=== PATIENT | female | born 1995 | race Caucasian/White ===

== ENCOUNTER 2018-10-08 17:17 | Observation (INO) ==
--- NOTE | 2018-10-08 22:28 | History and Physical Report ---
DATE OF ADMISSION: 10/08/2018 HISTORY OF PRESENT ILLNESS: The patient is a 23-year-old G1, P0, due date 11/28/2018, making her 32 weeks and 5 days. The patient has received care at [facility]. Her last appointment in was on generous 10/05/2018 when she was seen with diagnosis of mild preeclampsia. Her workup included a review of her preeclamptic labs, which was a uric acid, protein, and complete chemistry. The patient had seen maternal medicine today and upon evaluation by maternal medicine, the patient was asked to come to the [facility] to have blood pressures monitored for overnight and labs repeated. If blood pressure and labs are abnormal, the patient is to be transferred back to [place]. If they are normal, then patient can be monitored as an outpatient with mild preeclampsia. Also she will be followed with labs and NST as well as growth scans. The patient presented to [facility] with no shortness of breath, no chills, no fever. Blood pressure upon admission has been stable. The heart tracing has been category I. COURSE: complicated by preeclampsia. PAST MEDICAL HISTORY: 1. The patient has a history of pyelonephritis. 2. White coat syndrome. PAST SURGICAL HISTORY: The patient had dental surgery. FAMILY HISTORY: Noncontributory. SOCIAL HISTORY: The patient denies tobacco, drug, or alcohol use. ALLERGIES: No known drug allergies. PHYSICAL EXAMINATION: GENERAL: Well-developed, well-nourished white female in no acute distress. VITAL SIGNS: Presently, blood pressure 135/87, pulse 86, respiration 18, temperature 36.4. HEART: S1, S2, regular rhythm and rate. LUNGS: Clear to auscultation bilaterally. ABDOMEN: Gravid. heart tracing is category I. EXTREMITIES: No cyanosis, clubbing, edema. ASSESSMENT AND PLAN: A 23-year-old G1, P0 at 32 and 5 weeks. Diagnosis is mild preeclampsia. The patient has been observed overnight with blood pressure series and will have labs in the morning. If they are unremarkable as stated above, she will continue with as an outpatient for mild preeclampsia. She is already steroid benefited however, if the blood pressures are abnormal or labs are abnormal, she will be transferred to [facility] in [place].
[2018-10-09] MEDS ORDERED: ACETAMINOPHEN 325 MG TAB PO PRN (00:12)
[2018-10-09] MEDS ORDERED: ACETAMINOPHEN 325 MG TAB ONE (00:30)
[2018-10-09 06:08] LABS: Basophils # (auto) 0.02 K/uL (0-0.2); Basophils % (auto) 0.2 %; Eosinophils # (auto) 0.03 K/uL (0-0.5); Eosinophils % (auto) 0.2 %; Hematocrit (blood only) 37.2 % (37-47); Hemoglobin 12.6 g/dL (12.0-16.0); Immature Granulocytes # (auto) 0.25 K/uL (0.00-0.02); Immature Granulocytes % (auto) 2.1 %; Lymphocytes # (auto) 1.88 K/uL (1.2-3.4); Lymphocytes % (auto) 15.6 %; Mean Corpuscular Hgb Conc 33.9 g/dL (32-36); Mean Corpuscular Volume 94.9 fL (80-100); Mean Platelet Volume 10.1 fL (7.4-10.4); Monocytes # (auto) 1.04 K/uL (0.11-0.59); Monocytes % (auto) 8.6 %; Neutrophils # (auto) 8.84 K/uL (1.4-6.5); Neutrophils % (auto) 73.3 %; Platelet Count 289 K/uL (130-400); RDW Coefficient of Variation 13.6 % (11.5-14.5); RDW Standard Deviation 46.8 fL (36.4-46.3); Red Blood Count 3.92 M/uL (4.2-5.4); White Blood Count 12.06 K/uL (4.8-10.8)
[2018-10-09 06:36] LABS: Albumin Level 3.1 gm/dl (3.4-5.0); BUN Creatinine Ratio 15.9 (10-20); Creatinine Clr Calc Pharmacy 84.6 ml/min; Est GFR (African American) 95.9; Est GFR (Non-African American) 82.8; Potassium 3.7 mmol/L (3.5-5.1)
[2018-10-09 06:39] LABS: Albumin Globulin Ratio 0.8 (0.9-2); Bilirubin,Total 0.3 mg/dl (0.2-1); Globulin 3.9 gm/dl (2.5-4.0)
--- NOTE | 2018-10-09 08:35 | Obstetrical Progress Note ---
Date of Service October 09, 2018 Subjective Patient is reevaluated She was admitted last night by Dr. Torres for BP's and repeat labs She feels well no complaints other than being nervous when she is in the hospital. No RUDD/ Change in vision/ N&V/ RUQ or epigastric pain BP's stable, 110-120/ 60-70's while resting and sleeping, low 140/90's when she is up nervous and looking at the monitor screen Discussed management of anxiety but she declined, she states she does not have anxiety normally, just happens here in the hospital or in doctor's office 10/09/18 10/09/18 10/09/18 Range/Units 05:35 05:35 05:35 WBC 12.06 H (4.8-10.8) K/uL RBC 3.92 L (4.2-5.4) M/uL Hgb 12.6 (12.0-16.0) g/dL Hct 37.2 (37-47) % MCV 94.9 (80-100) fL MCH 32.1 (25-34) pg MCHC 33.9 (32-36) g/dL RDW Std Deviation 46.8 H (36.4-46.3) fL RDW Coeff of Connie 13.6 (11.5-14.5) % Plt Count 289 (130-400) K/uL MPV 10.1 (7.4-10.4) fL Immature Gran % (Auto) 2.1 % Neut % (Auto) 73.3 % Lymph % (Auto) 15.6 % Kinney % (Auto) 8.6 % Eos % (Auto) 0.2 % Baso % (Auto) 0.2 % Immature Gran # (Auto) 0.25 H (0.00-0.02) K/uL Neut # (Auto) 8.84 H (1.4-6.5) K/uL Lymph # (Auto) 1.88 (1.2-3.4) K/uL Kinney # (Auto) 1.04 H (0.11-0.59) K/uL Eos # (Auto) 0.03 (0-0.5) K/uL Baso # (Auto) 0.02 (0-0.2) K/uL Sodium 135 L (136-145) mmol/L Potassium 3.7 (3.5-5.1) mmol/L Chloride 106 (98-107) mmol/L Carbon Dioxide 25 (21-32) mmol/L Anion Gap 4.0 (3-11) BUN 15 (7-18) mg/dl Creatinine 0.96 (0.6-1.2) mg/dl Est Cr Clr Drug Dosing 84.6 ml/min Est GFR ( Amer) 95.9 Est GFR (Non-Af Amer) 82.8 BUN/Creatinine Ratio 15.9 (10-20) Glucose 86 (70-99) mg/dl Calcium 9.0 (8.5-10.1) mg/dl Total Bilirubin 0.3 (0.2-1) mg/dl AST 11 L (15-37) U/L ALT 15 (12-78) U/L Alkaline Phosphatase 80 (45-117) U/L Lactate Dehydrogenase Pending Total Protein 7.0 (6.4-8.2) gm/dl Albumin 3.1 L (3.4-5.0) gm/dl Globulin 3.9 (2.5-4.0) gm/dl Albumin/Globulin Ratio 0.8 L (0.9-2) Labd WNL, LDH was not done due to machine broke Creatinine stable, had been 0.9 since 10/06 and was 0.9 [place] [facility] [place] Discussed labs and BP's She likes to go home and rest Plan: Off work, modified bed rest Daily BP's f/u in office on Friday/ for NST, BP Repeat labs All questions were answered Physical Exam 2 Vital Signs (Past 24 Hours): Last Vital Signs Temp 36.9 C 10/09/18 04:40 Pulse 127 H 10/09/18 08:02 Resp 18 10/09/18 06:16 BP 131/93 10/09/18 08:02
--- NOTE | 2018-10-13 00:29 | Discharge Summary ---
DETAILS OF ADMISSION: The patient is a 23-year-old G1, P0 at 32 weeks and 5 days. She was admitted for observation by Dr. Torres on 10/08/2018. She has been having high blood pressures with proteinuria for the last week and she had preeclamptic labs which were normal. She was referred to maternal medicine for evaluation. She saw them in their office on 10/08 afternoon and they recommended to keep her overnight for blood pressure control and transfer to them if there is any severe range of blood pressures or severe features of preeclampsia. She was admitted overnight for blood pressure measurements and labs and her labs were stable except borderline increased creatinine of 0.9, which was stable since the week before. Her liver enzymes, platelets were normal, and her blood pressures were checked multiple times from night to the morning and they were within normal limits when she is at rest and not nervous or sleeping. The highest numbers were in 140s over 90s when she is up and nervous. She has a history of white coat syndrome and has reported high blood pressures in the office in the past even before . I saw her in the morning of 10/09/2018. She was feeling well. She denied any severe symptoms. She denied chest pain, shortness of breath, headaches, change in her vision, nausea, vomiting, right upper quadrant, or epigastric pain. She reported good movements. She denies contraction, leakage of fluid, or vaginal bleeding. Her labs were repeated in the morning. Her creatinine was stable at 0.9 and other labs were normal. She wanted to be discharged. She was discharged on 10/09/2018 with modified bed rest at home, to be off from work, take blood pressures at home, and twice a week office visits for blood pressures and NSTs and repeat labs every week per [facility] recommendations. All questions were answered. Instructions were given when to call and appointments were made for the office. TESHA
== END 2018-10-09 09:25 | disposition home or self-care (01) ==
LOC: OPB 17:17 → 4S1 17:18 → INTOOBSV 19:53

== ENCOUNTER 2018-11-06 07:29 | Inpatient (IN) ==
[2018-11-06] MEDS ORDERED: miSOPROStol 50 MCG TAB PO ONE (09:41)
[2018-11-06] MEDS ORDERED: LACTATED RINGER'S 1,000 ML IV PRN (09:41)
[2018-11-06] MEDS ORDERED: OXYTOCIN 30 UNITS/500 ML BAG IV PRN (09:41)
[2018-11-06 10:10] LABS: Hematocrit (blood only) 36.1 % (37-47); Hemoglobin 12.2 g/dL (12.0-16.0); Mean Platelet Volume 9.7 fL (7.4-10.4); Platelet Count 262 K/uL (130-400); RDW Coefficient of Variation 13.9 % (11.5-14.5); RDW Standard Deviation 47.6 fL (36.4-46.3); Red Blood Count 3.84 M/uL (4.2-5.4); White Blood Count 9.33 K/uL (4.8-10.8)
[2018-11-06 10:12] LABS: Mean Corpuscular Hgb Conc 33.8 g/dL (32-36)
[2018-11-06 10:22] LABS: Albumin Level 2.4 gm/dl (3.4-5.0); BUN Creatinine Ratio 17.7 (10-20); Calcium 8.9 mg/dl (8.5-10.1); Creatinine Clr Calc Pharmacy 89.9 ml/min; Est GFR (African American) 92.4; Est GFR (Non-African American) 79.8; Potassium 3.8 mmol/L (3.5-5.1)
[2018-11-06 10:25] LABS: Albumin Globulin Ratio 0.6 (0.9-2); Bilirubin,Total 0.2 mg/dl (0.2-1); Globulin 3.8 gm/dl (2.5-4.0); Total Protein 6.2 gm/dl (6.4-8.2)
--- NOTE | 2018-11-06 10:34 | Labor Progress Brief Note ---
Date of Service November 06, 2018 Met pt and spouse Induction for mild preecalmpsia Bedside sono: VT FHR; CAT1 Ctx; Minimal VE: ft/soft/post discussed and reviewed plan with pt and spouse plan is agreed upon Cytotec#1 given Physical Exam 2 Vital Signs (Past 24 Hours): Last Vital Signs Temp 36.2 C L 11/06/18 07:49 Pulse 94 H 11/06/18 09:21 Resp 18 11/06/18 07:49 BP 140/83 11/06/18 09:21
--- NOTE | 2018-11-06 11:14 | History and Physical Report ---
DATE OF ADMISSION: 11/06/2018 HISTORY OF PRESENT ILLNESS: This is a 23-year-old G1, P0, due date 11/28/2018 making her 36 weeks and 6 days today, presented to Labor and Delivery for induction for mild preeclampsia. The patient has had preeclampsia, which was diagnosed in the last 2 weeks of her . She has been seen by Maternal Medicine and followed with conservative management, which included betamethasone, testing. was recommended by Maternal Medicine to have the patient induced at 37 weeks. Today, however, is Friday and the question was whether to have her come in and start induction today in hopes that she would be delivered at 37 weeks versus having her come over the weekend. The patient was scheduled by library serials assistant for induction today. She is therefore being induced at 36 and 6, one day short of the 37-week gestation. COURSE: Has been unremarkable. LABS: Blood type O positive, antibody negative, rubella immune, GBS negative. PAST MEDICAL HISTORY: History of pyelonephritis. PAST SURGICAL HISTORY: Dental surgery. SOCIAL HISTORY: The patient denies tobacco, drug or alcohol use. FAMILY HISTORY: Noncontributory. ALLERGIES: No known drug allergies. MEDICATIONS: The patient was on amoxicillin and vitamins. PHYSICAL EXAMINATION: GENERAL: Well-developed, well-nourished white female, in no acute distress. HEART: S1, S2, regular rhythm and rate. LUNGS: Clear to auscultation bilaterally. ABDOMEN: Gravid. PELVIC: The patient is fingertip, soft, posterior. Estimated weight by Jonatan's is about 6-7 pounds. ASSESSMENT AND PLAN: A 23-year-old G1, P0 at 36 and 6 weeks. The patient has mild preeclampsia. She started penicillin. She has been seen by Maternal Medicine. Recommendation of Maternal Medicine to induce patient. The patient is admitted here today and we will start induction process. Of note, she has had a series of 3+ proteins in her urine.
[2018-11-06] MEDS ORDERED: miSOPROStol 50 MCG TAB PO SCH (15:00)
[2018-11-06] MEDS ORDERED: DINOPROSTONE 10 MG INSERT PV ONE (19:31)
--- NOTE | 2018-11-06 20:24 | Labor Progress Brief Note ---
Date of Service November 06, 2018 Pt doing well induction for mild preeclampsia FHr CAT1 cxt 2-5mins VE; ft/post Cervidil placed in vagina Physical Exam 2 Vital Signs (Past 24 Hours): Last Vital Signs Temp 36.7 C 11/06/18 18:45 Pulse 100 H 11/06/18 20:20 Resp 18 11/06/18 18:45 BP 130/79 11/06/18 20:20
[2018-11-07] MEDS ORDERED: miSOPROStol 50 MCG TAB PO ONE (10:00)
[2018-11-07] MEDS ORDERED: miSOPROStol 50 MCG TAB PO STA ×2 (14:09→23:38)
[2018-11-07] MEDS ORDERED: miSOPROStol 50 MCG TAB PO SCH (19:00)
[2018-11-08] MEDS ORDERED: miSOPROStol 50 MCG TAB PO STA ×2 (03:26→08:05)
[2018-11-08] MEDS ORDERED: miSOPROStol 50 MCG TAB ONE (03:36)
[2018-11-08] MEDS ORDERED: OXYTOCIN 30 UNITS/500 ML BAG IV PRN ×2 (12:59→21:47)
[2018-11-08] MEDS ORDERED: LACTATED RINGER'S 1,000 ML IV PRN ×2 (12:59→17:08)
[2018-11-08] MEDS: LACTATED RINGER'S 1,000 ML IV SCH ×2 (13:15→17:05)
[2018-11-08] MEDS ORDERED: BUTORPHANOL TARTRATE 1 MG/ML VIAL IV STA (15:22)
[2018-11-08 16:07] LABS: Hematocrit (blood only) 38.8 % (37-47); Hemoglobin 13.3 g/dL (12.0-16.0); Mean Corpuscular Hgb Conc 34.3 g/dL (32-36); Mean Corpuscular Volume 94.6 fL (80-100); Mean Platelet Volume 9.6 fL (7.4-10.4); Platelet Count 303 K/uL (130-400); RDW Standard Deviation 47.7 fL (36.4-46.3); White Blood Count 13.94 K/uL (4.8-10.8)
[2018-11-08 16:23] LABS: Albumin Level 2.6 gm/dl (3.4-5.0); BUN Creatinine Ratio 14.6 (10-20); Calcium 8.7 mg/dl (8.5-10.1); Creatinine Clr Calc Pharmacy 69.5 ml/min; Est GFR (African American) 67.8; Est GFR (Non-African American) 58.5; Potassium 3.7 mmol/L (3.5-5.1)
[2018-11-08 16:25] LABS: Albumin Globulin Ratio 0.6 (0.9-2); Bilirubin,Total 0.3 mg/dl (0.2-1); Globulin 4.1 gm/dl (2.5-4.0); Total Protein 6.7 gm/dl (6.4-8.2)
[2018-11-08] MEDS ORDERED: fentaNYL citrate 100 MCG/2 ML VIAL ONE (16:36)
[2018-11-08] MEDS ORDERED: BUPIVACAINE 0.25% 30 ML VIAL ONE (16:36)
[2018-11-08] MEDS ORDERED: ePHEDrine sulfate 50 MG/ML AMP ONE (16:36)
[2018-11-08] MEDS ORDERED: fentaNYL 2MCG/ML ROPIV 1.25MG/ML 100 ML BAG EPI ONE (16:37)
--- NOTE | 2018-11-08 16:41 | Anesthesiology Consultation ---
Date of Service November 08, 2018 Assessment & Plan Chart Review Chart Review: Acceptable Risk for Labor Epidural and Patient seen in Pre Admission Testing Consults Requested none ASA ASA2 Proposed Anesthesia Anesthesia Type: Labor Epidural NPO Date Last Intake of Fluids: 11/08/18 Time Last Intake of Fluids: 16:30 Date Last Intake of Solids: 11/08/18 Time Last Intake of Solids: 12:00 History Height/Weight Height: 1.68 m Weight: 73.482 kg Allergies Allergy/AdvReac Type Severity Reaction Status Date / Time No Known Allergies Allergy Verified 11/06/18 08:03 Medications Home Medications Medication Instructions Recorded Confirmed Last Taken vit-iron fum-folic ac 1 tab PO DAILY 10/06/18 11/06/18 1 Day Ago [ Vitamin] ~11/05/18 Active Medications Generic Name Dose Route Start Last Admin Trade Name Freq PRN Reason Stop Dose Admin Oxytocin 30 units in 500 mls @ 8 mls/hr 11/08/18 12:59 11/08/18 14:55 Pitocin IV 11/10/18 12:58 0.48 units/hr .Q24H PRN 8 mls/hr Labor Induction/Augmentation Titration Protocol 0.48 UNITS/HR Past Medical History Medical History No significant past surgical history History of pyelonephritis Pre-eclampsia White coat syndrome with diagnosis of hypertension Past Family History Family History Other No pertinent family history Past Surgical History Surgical History H/O wisdom tooth extraction Past Anesthesia History No Hx of Anesthesia Complications and No Family Hx of Anesthesia Complications History of PONV No Motion Sickness Screening History of Motion Sickness: No Social History Smoking Status: Never smoker Do You Dip or Chew Tobacco: No Hx Alcohol Use: No Hx Substance Use: No Exercise / Class Metabolic Activity II 4-5 Yardwork/Stairs/Walk up hill Physical Exam Vital Signs Last Vital Signs Temp 36.9 C 11/08/18 15:53 Pulse 93 H 11/08/18 15:53 Resp 20 11/08/18 15:53 BP 141/79 H 11/08/18 15:53 ENMT Mouth: no TMJ abnormality and no TMJ clicking Thyromental Distance: < 3.5 Finger Breadths Mallampati Class: II Neck normal visual inspection; neck extension not limited Respiratory Auscultation: lungs clear to auscultation bilaterally Cardiovascular Rate/Rhythm: regular rate and regular rhythm Psychiatric Orientation: alert and oriented x 3 Testing Laboratory Results 11/08/18 15:57 11/08/18 15:57
[2018-11-08] MEDS ORDERED: ePHEDrine sulfate 50 MG/ML AMP IV PRN (17:08)
[2018-11-08] MEDS ORDERED: NALOXONE HCL 1 MG in SODIUM CHLORIDE 0.9% 1000ML 1,000 ML IV PRN (17:08)
[2018-11-08] MEDS ORDERED: fentaNYL 2MCG/ML ROPIV 1.25MG/ML 100 ML BAG EPI PRN (17:08)
[2018-11-08] MEDS ORDERED: PROMETHAZINE HCL 12.5 MG in SODIUM CHLORIDE 0.9% 50 ML IV PRN (17:08)
[2018-11-08] MEDS ORDERED: NALOXONE HCL 0.4 MG/1 ML VIAL/CARP IV PRN (17:08)
[2018-11-08] MEDS ORDERED: NALBUPHINE HCL INJ 10 MG/ML AMP IV PRN (17:08)
[2018-11-08] MEDS ORDERED: ONDANSETRON INJ 2 MG/ML 2 ML VIAL IV PRN (17:08)
[2018-11-08] MEDS ORDERED: DiphenhydrAMINE HCL 50 MG/ML VIAL IV PRN (17:08)
[2018-11-08] MEDS ORDERED: HYDROCORTISONE ACETATE 25 MG SUPP PR PRN (21:47)
[2018-11-08] MEDS ORDERED: BENZOCAINE 20% AER SPR 82.5 GM CAN EXT PRN (21:47)
[2018-11-08] MEDS ORDERED: ACETAMINOPHEN 325 MG TAB PO PRN (21:47)
[2018-11-08] MEDS ORDERED: SUPERCREAM 0.870% 15 GM JAR EXT PRN (21:47)
[2018-11-08] MEDS ORDERED: BISACODYL 10 MG SUPP PR PRN (21:47)
[2018-11-08] MEDS ORDERED: DIPHTHERIA/TETANUS/PERTUSSIS 0.5 ML SYR/VIAL IM ONE (21:47)
[2018-11-08] MEDS ORDERED: OXYCODONE/ACETAMINOPHEN 5mg/325mg TAB PO PRN (21:47)
[2018-11-08] MEDS: ACETAMINOPHEN W/CODEINE #3 1 TAB PO PRN (22:08)
--- NOTE | 2018-11-09 01:28 | Operative Report ---
DATE OF OPERATION: 11/08/2018 DELIVERY NOTE Mrs. Crandall was followed in the [facility] for care and delivery. She became toxemic. She had high blood pressure, she had proteinuria, and she was brought in for induction at approximately 36 weeks gestation. On admission, the cervix was unfavorable. She was given two 50 mcg Cytotec tablets and a Cervidil tape. The following day, we examined her cervix, her cervix was still long, closed, firm, posterior. I then started her on multiple doses of Cytotec 50 mcg every 4 hours. This was done all through Friday and through early Friday morning. She received her last dose of p.o. Cytotec about 8:00 a.m. Friday morning, at which time cervix was 1.5 cm posterior and I was able to strip the membranes. Then, in the afternoon, we went to IV Pitocin and she began to get regular contractions. Her membranes ruptured spontaneously. She had several doses of Stadol for pain control. She went to full dilatation and delivered a live male via direct occiput anterior position over an intact perineum. Infant was suctioned through the mouth and the nose. Cord was clamped, cut by the father. Cord blood was taken with IV Pitocin running, the placenta was removed intact. Inspection of the perineum revealed bilateral sulcus laceration, worse on the right than the left, and it tore through the labia minora up by the clitoral area. We approximated the right side by infiltrating the labia minora with local with epinephrine and using interrupted Vicryl sutures and mattress Vicryl sutures to reapproximate the labia minora anatomically. We then followed the extent of the sulcus laceration on the left side, got above it with a 2-0 heavy Vicryl and used continuous 2-0 Vicryl to approximate out and to beyond the hymenal ring and we used several additional mattress sutures of Vicryl to approximate the anterior surface of the labia. Same process was repeated on the patient's left side. We identified the top of the sulcus, used a running 2-0 Vicryl, injected the labia minora with local with epinephrine. Did interrupted deep sutures to get an anatomic approximation along with mattress sutures of 2-0 Vicryl both inside and outside of the labia. Following this, vag exam including rectovaginal examination revealed no hematoma formation or sponges in the vagina. Estimated blood loss was 200 mL. My own estimation of 1- and 5-minute Apgars were 8 and 9 respectively. I attest to the content of the Intraoperative Record and any orders documented therein. Any exception s are noted below.
[2018-11-09] MEDS: ACETAMINOPHEN W/CODEINE #3 1 TAB PO PRN ×3 (03:06→19:13)
[2018-11-09] MEDS ORDERED: LIDOCAINE 2% JELLY 5 ML TUBE EXT PRN (03:14)
--- NOTE | 2018-11-09 03:21 | Anesthesia Procedure Note ---
Date of Service November 09, 2018 Anesthesia Post Epidural Note Vital Signs Vital Signs: Temp Pulse Resp BP BP Pulse Ox 11/08/18 23:40 36.8 C 18 133/79 100 11/08/18 23:17 120 H 133/79 11/08/18 22:33 127 H 140/86 11/08/18 22:18 139 H 137/82 11/08/18 22:03 137 H 129/75 11/08/18 21:48 151 H 130/72 11/08/18 21:33 171 H 146/82 H 11/08/18 21:18 164 H 142/78 H 11/08/18 21:08 144 H 96 11/08/18 21:05 175 H 89 L 11/08/18 21:03 182 H 149/83 H 98 11/08/18 20:58 153 H 99 11/08/18 20:53 168 H 99 11/08/18 20:51 174 H 92 11/08/18 20:50 18 11/08/18 20:48 164 H 137/75 97 11/08/18 20:43 160 H 98 11/08/18 20:38 154 H 97 11/08/18 20:35 18 11/08/18 20:33 143 H 138/71 98 11/08/18 20:28 147 H 98 11/08/18 20:23 172 H 97 11/08/18 20:19 141 H 88 L 11/08/18 20:18 143 H 121/58 L 99 11/08/18 20:13 135 H 99 11/08/18 20:08 147 H 98 11/08/18 20:03 149 H 133/73 99 11/08/18 19:58 129 H 100 11/08/18 19:53 37.4 C 113 H 18 100 11/08/18 19:48 113 H 135/86 100 11/08/18 19:43 119 H 100 11/08/18 19:38 120 H 100 11/08/18 19:34 112 H 142/90 H 11/08/18 19:33 110 H 100 11/08/18 19:28 117 H 100 11/08/18 19:23 117 H 100 11/08/18 19:18 124 H 142/82 H 99 11/08/18 19:13 131 H 100 11/08/18 19:08 135 H 99 11/08/18 19:03 148 H 149/88 H 100 11/08/18 19:00 38.3 C H 20 11/08/18 18:58 137 H 100 11/08/18 18:53 139 H 100 11/08/18 18:48 131 H 140/86 100 11/08/18 18:43 135 H 100 11/08/18 18:38 124 H 100 11/08/18 18:33 122 H 138/89 100 11/08/18 18:30 20 11/08/18 18:28 110 H 100 11/08/18 18:23 106 H 100 11/08/18 18:18 101 H 135/89 100 11/08/18 18:13 103 H 100 11/08/18 18:08 110 H 100 11/08/18 18:04 105 H 135/86 11/08/18 18:03 104 H 100 11/08/18 18:00 18 11/08/18 17:58 114 H 100 11/08/18 17:53 109 H 100 11/08/18 17:49 121 H 148/89 H 11/08/18 17:48 121 H 100 11/08/18 17:43 101 H 100 11/08/18 17:38 106 H 99 11/08/18 17:33 102 H 99 11/08/18 17:32 107 H 140/84 11/08/18 17:30 20 11/08/18 17:28 102 H 100 11/08/18 17:27 98 H 137/81 11/08/18 17:23 104 H 99 11/08/18 17:21 103 H 141/87 H 11/08/18 17:18 98 H 100 11/08/18 17:16 96 H 131/74 11/08/18 17:14 99 H 129/74 11/08/18 17:13 95 H 100 11/08/18 17:12 94 H 123/69 11/08/18 17:10 37.0 C 91 H 18 124/71 11/08/18 17:08 95 H 122/67 100 11/08/18 17:06 99 H 122/64 11/08/18 17:04 99 H 126/70 11/08/18 17:03 101 H 99 11/08/18 17:02 96 H 126/65 11/08/18 17:01 20 02/10/19 17:00 87 130/68 11/08/18 16:58 102 H 97 11/08/18 16:57 102 H 135/72 11/08/18 16:53 119 H 98 11/08/18 16:48 135 H 100 11/08/18 16:43 99 H 98 11/08/18 16:42 111 H 144/99 H 11/08/18 15:53 36.9 C 93 H 20 141/79 H 11/08/18 14:56 98 H 20 141/89 H 11/08/18 14:18 37.1 C 104 H 20 140/96 11/08/18 13:14 107 H 139/99 11/08/18 11:13 36.8 C 18 11/08/18 11:12 97 H 132/90 11/08/18 09:25 100 H 140/85 11/08/18 07:20 37.0 C 94 H 18 132/88 11/08/18 06:31 85 133/93 11/08/18 05:30 18 11/08/18 05:19 97 H 138/91 11/08/18 05:10 36.8 C 18 11/08/18 03:45 36.8 C 18 Pain Intensity Abdomen: Pain Intensity: 5 Notes Mental Status: alert / awake / arousable and participated in evaluation Nausea / Vomiting: adequately controlled Pain: adequately controlled Airway Patency, RR, SpO2: stable & adequate BP & HR: stable & adequate Hydration State: stable & adequate Neuraxial Anesthesia: was administered and sensory block is resolving Anesthetic Complications: no major complications apparent and Pt Satisfied with anesthetic care Epidural: Removed without complications and With tip intact
[2018-11-09] MEDS ORDERED: MEPERIDINE HCL 50 MG/ML CARP IM PRN (04:31)
[2018-11-09] MEDS ORDERED: MEPERIDINE HCL 50 MG/ML CARP ONE (04:35)
[2018-11-09 06:31] LABS: Hematocrit (blood only) 33.8 % (37-47); Hemoglobin 11.4 g/dL (12.0-16.0); Mean Corpuscular Hgb Conc 33.7 g/dL (32-36); Mean Corpuscular Volume 95.2 fL (80-100); Mean Platelet Volume 9.5 fL (7.4-10.4); Platelet Count 228 K/uL (130-400); RDW Standard Deviation 49.2 fL (36.4-46.3); Red Blood Count 3.55 M/uL (4.2-5.4); White Blood Count 19.23 K/uL (4.8-10.8)
[2018-11-09] MEDS: IBUPROFEN 600 MG TAB PO PRN ×3 (06:31→20:54)
--- NOTE | 2018-11-09 08:40 | Obstetrical Progress Note ---
Date of Service November 09, 2018 Subjective Patient is seen and examined. She feels well, no complaints. Ambulating without dizziness Could not void, was swollen and placed garcia catheter Tolerating regular diet with out N&V Bleeding is minimal No fever/ chills/ CP/ SOB/ N&V/ Leg pain Breast feeding without problems Vital Signs Temp Pulse Pulse Resp BP BP Pulse Ox 11/09/18 08:01 89 145/91 H 11/09/18 07:55 99 H 139/95 11/09/18 07:52 108 H 140/92 11/09/18 03:33 37.0 C 105 H 18 141/87 H 100 11/09/18 03:31 105 H 141/87 H 11/08/18 23:40 36.8 C 18 133/79 100 11/08/18 23:17 120 H 133/79 11/08/18 22:33 127 H 140/86 11/08/18 22:18 139 H 137/82 11/08/18 22:03 137 H 129/75 11/08/18 21:48 151 H 130/72 11/08/18 21:33 171 H 146/82 H 11/08/18 21:18 164 H 142/78 H 11/08/18 21:08 144 H 96 11/08/18 21:05 175 H 89 L 11/08/18 21:03 182 H 149/83 H 98 11/08/18 20:58 153 H 99 11/08/18 20:53 168 H 99 11/08/18 20:51 174 H 92 11/08/18 20:50 18 11/08/18 20:48 164 H 137/75 97 11/08/18 20:43 160 H 98 11/08/18 20:38 154 H 97 11/08/18 20:35 18 11/08/18 20:33 143 H 138/71 98 11/08/18 20:28 147 H 98 11/08/18 20:23 172 H 97 11/08/18 20:19 141 H 88 L 11/08/18 20:18 143 H 121/58 L 99 11/08/18 20:13 135 H 99 11/08/18 20:08 147 H 98 11/08/18 20:03 149 H 133/73 99 11/08/18 19:58 129 H 100 11/08/18 19:53 37.4 C 113 H 18 100 11/08/18 19:48 113 H 135/86 100 11/08/18 19:43 119 H 100 11/08/18 19:38 120 H 100 11/08/18 19:34 112 H 142/90 H 11/08/18 19:33 110 H 100 11/08/18 19:28 117 H 100 11/08/18 19:23 117 H 100 11/08/18 19:18 124 H 142/82 H 99 11/08/18 19:13 131 H 100 11/08/18 19:08 135 H 99 11/08/18 19:03 148 H 149/88 H 100 11/08/18 19:00 38.3 C H 20 11/08/18 18:58 137 H 100 11/08/18 18:53 139 H 100 11/08/18 18:48 131 H 140/86 100 11/08/18 18:43 135 H 100 11/08/18 18:38 124 H 100 11/08/18 18:33 122 H 138/89 100 11/08/18 18:30 20 11/08/18 18:28 110 H 100 11/08/18 18:23 106 H 100 11/08/18 18:18 101 H 135/89 100 11/08/18 18:13 103 H 100 11/08/18 18:08 110 H 100 11/08/18 18:04 105 H 135/86 11/08/18 18:03 104 H 100 11/08/18 18:00 18 11/08/18 17:58 114 H 100 11/08/18 17:53 109 H 100 11/08/18 17:49 121 H 148/89 H 11/08/18 17:48 121 H 100 11/08/18 17:43 101 H 100 11/08/18 17:38 106 H 99 11/08/18 17:33 102 H 99 11/08/18 17:32 107 H 140/84 11/08/18 17:30 20 11/08/18 17:28 102 H 100 11/08/18 17:27 98 H 137/81 11/08/18 17:23 104 H 99 11/08/18 17:21 103 H 141/87 H 11/08/18 17:18 98 H 100 11/08/18 17:16 96 H 131/74 11/08/18 17:14 99 H 129/74 11/08/18 17:13 95 H 100 11/08/18 17:12 94 H 123/69 11/08/18 17:10 37.0 C 91 H 18 124/71 11/08/18 17:08 95 H 122/67 100 11/08/18 17:06 99 H 122/64 11/08/18 17:04 99 H 126/70 11/08/18 17:03 101 H 99 11/08/18 17:02 96 H 126/65 11/08/18 17:01 20 11/08/18 17:00 87 130/68 11/08/18 16:58 102 H 97 11/08/18 16:57 102 H 135/72 11/08/18 16:53 119 H 98 11/08/18 16:48 135 H 100 11/08/18 16:43 99 H 98 11/08/18 16:42 111 H 144/99 H 11/08/18 15:53 36.9 C 93 H 20 141/79 H 11/08/18 14:56 98 H 20 141/89 H 11/08/18 14:18 37.1 C 104 H 20 140/96 11/08/18 13:14 107 H 139/99 11/08/18 11:13 36.8 C 18 11/08/18 11:12 97 H 132/90 11/08/18 09:25 100 H 140/85 Intake and Output 11/08/18 11/09/18 11/09/18 22:59 06:59 14:59 Intake Total 2191.250 / 2191.250 Output Total 500 / 500 1400 / 1400 Balance 1691.250 / 1691.250 -1400 / -1400 Intake: IV 2191.250 / 2191.250 Lr 1,000 ml @ 125 mls/hr IV . 1697.917 / 1697.917 Q8H [place] Rx#:[id number] PITOCIN 30 units In 500 ml @ 0. 493.333 / 493.333 48 UNITS/HR 8 mls/hr IV .Q24H PRN Rx#:[id number] Output: Urine 300 / 300 Urine Amount (Catheter) 200 / 200 1400 / 1400 Garcia/Indwelling 1400 / 1400 Straight 200 / 200 Other: Weight 73.482 kg Lab Results 11/06/18 11/06/18 11/08/18 Range/Units 09:51 09:51 15:57 WBC 9.33 13.94 H (4.8-10.8) K/uL RBC 3.84 L 4.10 L (4.2-5.4) M/uL Hgb 12.2 13.3 (12.0-16.0) g/dL Hct 36.1 L 38.8 (37-47) % MCV 94.0 94.6 (80-100) fL MCH 31.8 32.4 (25-34) pg MCHC 33.8 34.3 (32-36) g/dL RDW Std Deviation 47.6 H 47.7 H (36.4-46.3) fL RDW Coeff of Connie 13.9 14.0 (11.5-14.5) % Plt Count 262 303 (130-400) K/uL MPV 9.7 9.6 (7.4-10.4) fL Sodium 138 (136-145) mmol/L Potassium 3.8 (3.5-5.1) mmol/L Chloride 108 H (98-107) mmol/L Carbon Dioxide 23 (21-32) mmol/L Anion Gap 7.0 (3-11) BUN 18 (7-18) mg/dl Creatinine 0.99 (0.6-1.2) mg/dl Est Cr Clr Drug Dosing 89.9 ml/min Est GFR ( Amer) 92.4 Est GFR (Non-Af Amer) 79.8 BUN/Creatinine Ratio 17.7 (10-20) Glucose 82 (70-99) mg/dl Calcium 8.9 (8.5-10.1) mg/dl Total Bilirubin 0.2 (0.2-1) mg/dl AST 13 L (15-37) U/L ALT 16 (12-78) U/L Alkaline Phosphatase 113 (45-117) U/L Total Protein 6.2 L (6.4-8.2) gm/dl Albumin 2.4 L (3.4-5.0) gm/dl Globulin 3.8 (2.5-4.0) gm/dl Albumin/Globulin Ratio 0.6 L (0.9-2) 11/08/18 11/09/18 Range/Units 15:57 06:22 WBC 19.23 H (4.8-10.8) K/uL RBC 3.55 L (4.2-5.4) M/uL Hgb 11.4 L (12.0-16.0) g/dL Hct 33.8 L (37-47) % MCV 95.2 (80-100) fL MCH 32.1 (25-34) pg MCHC 33.7 (32-36) g/dL RDW Std Deviation 49.2 H (36.4-46.3) fL RDW Coeff of Connie 14.0 (11.5-14.5) % Plt Count 228 (130-400) K/uL MPV 9.5 (7.4-10.4) fL Sodium 139 (136-145) mmol/L Potassium 3.7 (3.5-5.1) mmol/L Chloride 107 (98-107) mmol/L Carbon Dioxide 22 (21-32) mmol/L Anion Gap 10.0 (3-11) BUN 19 H (7-18) mg/dl Creatinine 1.28 H (0.6-1.2) mg/dl Est Cr Clr Drug Dosing 69.5 ml/min Est GFR ( Amer) 67.8 Est GFR (Non-Af Amer) 58.5 BUN/Creatinine Ratio 14.6 (10-20) Glucose 87 (70-99) mg/dl Calcium 8.7 (8.5-10.1) mg/dl Total Bilirubin 0.3 (0.2-1) mg/dl AST 13 L (15-37) U/L ALT 15 (12-78) U/L Alkaline Phosphatase 135 H (45-117) U/L Total Protein 6.7 (6.4-8.2) gm/dl Albumin 2.6 L (3.4-5.0) gm/dl Globulin 4.1 H (2.5-4.0) gm/dl Albumin/Globulin Ratio 0.6 L (0.9-2) PE: General: Alert, orientedx3, NAD Abd: soft, NT, fundus firm, below Umbilicus Perineum intact, Lochia rubra minimal Ext; NT, no edema AP: 23 yo s/p ,IOL for preeclampsia, ppd# 1 VSS Afebrile doing well Creatinine 1.2, will repeat this morning Continue to monitor/ routine care Garcia to drain catheter, will d/c this evening All questions were answered Physical Exam 2 Vital Signs (Past 24 Hours): Last Vital Signs Temp 37.0 C 11/09/18 03:33 Pulse 89 11/09/18 08:01 Resp 18 11/09/18 03:33 BP 145/91 H 11/09/18 08:01 Pulse Ox 100 11/09/18 03:33
[2018-11-09] MEDS ORDERED: DOCUSATE SODIUM 100 MG CAP PO SCH (09:00)
[2018-11-09 09:25] LABS: Albumin Level 2.1 gm/dl (3.4-5.0); Calcium 8.7 mg/dl (8.5-10.1); Creatinine Clr Calc Pharmacy 81.6 ml/min; Est GFR (African American) 82.3; Potassium 3.6 mmol/L (3.5-5.1)
[2018-11-09 09:30] LABS: Albumin Globulin Ratio 0.6 (0.9-2); Bilirubin,Total 0.3 mg/dl (0.2-1); Globulin 3.5 gm/dl (2.5-4.0); Total Protein 5.6 gm/dl (6.4-8.2)
[2018-11-09] MEDS ORDERED: BISACODYL 5 MG TABEC PO SCH (20:00)
--- NOTE | 2018-11-09 22:45 | Obstetrical Progress Note ---
Date of Service November 09, 2018 Subjective Patient is reevaluated She feels well no complaints Morgan is still in, draining She is not bothered by it, offered her d/c now but she wanted to sleep overnight and have it removed in am Notified her nurse about patient's desire VSS afebrile Creatinine 1.06, coming down Continue to monitor Repeat labs in am Physical Exam 2 Vital Signs (Past 24 Hours): Last Vital Signs Temp 36.5 C 11/09/18 19:46 Pulse 105 H 11/09/18 19:46 Resp 20 11/09/18 19:46 BP 138/86 11/09/18 19:46 Pulse Ox 98 11/09/18 11:35
[2018-11-10] MEDS: IBUPROFEN 600 MG TAB PO PRN ×3 (05:04→12:28)
[2018-11-10 06:42] LABS: Basophils # (auto) 0.04 K/uL (0-0.2); Basophils % (auto) 0.3 %; Eosinophils # (auto) 0.15 K/uL (0-0.5); Hematocrit (blood only) 36.4 % (37-47); Hemoglobin 12.1 g/dL (12.0-16.0); Immature Granulocytes # (auto) 0.16 K/uL (0.00-0.02); Immature Granulocytes % (auto) 1.1 %; Lymphocytes % (auto) 12.3 %; Mean Corpuscular Hgb Conc 33.2 g/dL (32-36); Mean Corpuscular Volume 96.3 fL (80-100); Mean Platelet Volume 9.7 fL (7.4-10.4); Monocytes % (auto) 6.1 %; Neutrophils # (auto) 11.64 K/uL (1.4-6.5); Neutrophils % (auto) 79.2 %; Platelet Count 259 K/uL (130-400); RDW Coefficient of Variation 14.5 % (11.5-14.5); RDW Standard Deviation 50.5 fL (36.4-46.3); Red Blood Count 3.78 M/uL (4.2-5.4); White Blood Count 14.69 K/uL (4.8-10.8)
[2018-11-10 07:22] LABS: Creatinine Clr Calc Pharmacy 76.7 ml/min; Est GFR (African American) 76.3; Est GFR (Non-African American) 65.8
--- NOTE | 2018-11-10 07:26 | Obstetrical Progress Note ---
Date of Service November 10, 2018 Subjective Patient is seen and examined. She feels well, no complaints. Ambulating without dizziness Has not Voided yet Garcia was taken out this morning. Tolerating regular diet with out N&V Bleeding is minimal No fever/ chills/ CP/ SOB/ N&V/ Leg pain Breast and bottle feeding without problems Discussed contraception, she will think about and decide at 6 wks pp visit Vital Signs Temp Pulse Pulse Resp BP BP Pulse Ox 11/10/18 00:10 36.8 C 18 11/09/18 19:46 36.5 C 105 H 20 138/86 11/09/18 15:40 36.6 C 111 H 20 133/97 11/09/18 11:35 36.6 C 99 H 18 140/93 98 11/09/18 08:45 36.6 C 94 H 18 141/96 H 98 11/09/18 08:01 89 145/91 H 11/09/18 08:00 36.8 C 20 11/09/18 07:55 99 H 139/95 11/09/18 07:52 108 H 140/92 Intake and Output 11/09/18 11/10/18 11/10/18 22:59 06:59 14:59 Output Total 500 / 500 1000 / 1000 Balance -500 / -500 -1000 / -1000 Output: Urine Amount (Catheter) 500 / 500 1000 / 1000 Garcia/Indwelling 500 / 500 1000 / 1000 11/10/18 11/10/18 11/09/18 Range/Units 06:29 06:29 08:33 WBC 14.69 H (4.8-10.8) K/uL RBC 3.78 L (4.2-5.4) M/uL Hgb 12.1 (12.0-16.0) g/dL Hct 36.4 L (37-47) % MCV 96.3 (80-100) fL MCH 32.0 (25-34) pg MCHC 33.2 (32-36) g/dL RDW Std Deviation 50.5 H (36.4-46.3) fL RDW Coeff of Connie 14.5 (11.5-14.5) % Plt Count 259 (130-400) K/uL MPV 9.7 (7.4-10.4) fL Immature Gran % (Auto) 1.1 % Neut % (Auto) 79.2 % Lymph % (Auto) 12.3 % [place] % (Auto) 6.1 % Eos % (Auto) 1.0 % Baso % (Auto) 0.3 % Immature Gran # (Auto) 0.16 H (0.00-0.02) K/uL Neut # (Auto) 11.64 H (1.4-6.5) K/uL Lymph # (Auto) 1.80 (1.2-3.4) K/uL [place] # (Auto) 0.90 H (0.11-0.59) K/uL Eos # (Auto) 0.15 (0-0.5) K/uL Baso # (Auto) 0.04 (0-0.2) K/uL Sodium 143 (136-145) mmol/L Potassium 3.6 (3.5-5.1) mmol/L Chloride 111 H (98-107) mmol/L Carbon Dioxide 24 (21-32) mmol/L Anion Gap 8.0 (3-11) BUN 15 (7-18) mg/dl Creatinine 1.16 1.09 (0.6-1.2) mg/dl Est Cr Clr Drug Dosing 76.7 81.6 ml/min Est GFR ( Amer) 76.3 82.3 Est GFR (Non-Af Amer) 65.8 71.0 BUN/Creatinine Ratio 14.0 (10-20) Glucose 110 H (70-99) mg/dl Calcium 8.7 (8.5-10.1) mg/dl Total Bilirubin 0.3 (0.2-1) mg/dl AST 28 (15-37) U/L ALT 16 (12-78) U/L Alkaline Phosphatase 103 (45-117) U/L Total Protein 5.6 L (6.4-8.2) gm/dl Albumin 2.1 L (3.4-5.0) gm/dl Globulin 3.5 (2.5-4.0) gm/dl Albumin/Globulin Ratio 0.6 L (0.9-2) PE: General: Alert, orientedx3, NAD Abd: soft, NT, fundus firm, below Umbilicus Perineum intact, Lochia rubra minimal Ext; NT, no edema AP: 23 yo s/p , ppd# 2 VSS Afebrile doing well s/o garcia catheter for 24 hours Await voiding without difficulty Continue routine care All questions were answered Discussed when to call D/C home in pm after voids Physical Exam 2 Vital Signs (Past 24 Hours): Last Vital Signs Temp 36.8 C 11/10/18 00:10 Pulse 105 H 11/09/18 19:46 Resp 18 11/10/18 00:10 BP 138/86 11/09/18 19:46 Pulse Ox 98 11/09/18 11:35
[2018-11-10] MEDS: PRENATAL VITAMIN 1 TAB PO SCH ×2 (07:38→08:44)
[2018-11-10] MEDS: FERROUS SULFATE 325 MG TAB PO SCH ×2 (07:38→08:44)
== END 2018-11-10 15:10 | disposition home or self-care (01) | DRG 807 ==
LOC: 4S1 07:29 → 4S2 11-09 09:01